=== PATIENT | female | born 1990 | race Caucasian/White ===

== ENCOUNTER → 2018-09-04 15:51 | Outpatient (CLI) | payer BC, MEDICAID, SELFPAY | PROVIDERS: PCP Family Medicine; Visit Provider Nurse Practitioner Family | DX: R00.2 Palpitations (principal) | CPT/HCPCS: 93005; 93225; 93226 ==

== ENCOUNTER → 2018-09-09 15:07 | Outpatient (CLI) | payer BC, MEDICAID, SELFPAY ==
--- NOTE | 2018-09-09 15:12 | CA_ITS ---
PROCEDURE: 2-D echo Doppler INDICATIONS FOR THE TEST: Chest pain COPD Heart Murmur+ Tobacco Smoking Palpitations+ Fatigue Syncope Edema Hypertension Diabetes Mellitus Rheumatic Fever SOB MCCARTHY Obesity Hyperlipidemia Family History HD Additional History PATIENT INFORMATION HEIGHT: 67 WEIGHT:169 GENDER: Female B/P:124/80 2-D/M-MODE INTERPRETATION: 2-D MEASUREMENTS OBSERVED VALUES IN CMS Right Ventricular Dimension (RVDd) 1.4 Interventricular Septum (Thickness)(IVsd) 0.9 Left Ventricular Internal Dimensions(LVIDd) 4.8 Left Ventricular Posterior Wall (Thickness)(LVPWd) 0.7 Aortic Root 2.7 Aortic Cusp Separation 1.8 Left Atrial Dimensions (LAD) 2.8 2D 1. Left atrium is normal size, left ventricle is normal size, there is no concentric left ventricular hypertrophy, visually estimated ejection fraction of 55% with no regional wall motion abnormality. 2. The right atrium and right ventricle are normal size and contractility. 3. The aortic, mitral and tricuspid valves are grossly normal. 4. The pulmonic valve is poorly visualized. 5. There is no significant pericardial effusion noted. DOPPLER INTERROGATION: Doppler interrogation of the aortic, mitral and tricuspid valvular presence of mild mitral and tricuspid regurgitation, tricuspid regurgitation jet velocity is inadequate for calculation of the right ventricular systolic pressure, diastolic parameters are within normal range. CONCLUSION: 1. Normal left ventricular size, preserved left ventricular systolic function, visually estimated ejection fraction of 55% with no regional wall motion abnormality, diastolic parameters are within normal range. 2. Mild mitral and tricuspid regurgitation 3. No significant pericardial effusion noted.
== END ==
PROVIDERS: PCP Family Medicine; Visit Provider Nurse Practitioner Family
DX: R00.2 Palpitations (principal)
CPT/HCPCS: 93306

== ENCOUNTER → 2019-02-13 15:12 | Outpatient (CLI) | payer BC, MEDICAID, SELFPAY ==
[2019-02-13 18:27] LABS: HCG,Quantitative 0 mIU/mL
== END ==
PROVIDERS: Visit Provider Obstetrics & Gynecology
DX: Z32.00 Encounter for pregnancy test, result unknown (principal)
CPT/HCPCS: 36415; 84702

== ENCOUNTER → 2020-07-15 12:07 | Outpatient (CLI) | payer BC, SELFPAY ==
[2020-07-16 14:14] LABS: Covid-19 Nasal PCR Sendout Lex NOT DETECTED
== END ==
PROVIDERS: PCP Family Medicine; Visit Provider Family Medicine
DX: Z03.818 Encounter for observation for suspected exposure to other biological agents ruled out (principal)
CPT/HCPCS: U0004

== ENCOUNTER 2021-06-07 11:17 | Emergency (ER) | payer BC, SELFPAY ==
[2021-06-07 12:44] VITALS: BP 125/71; PULSE 75; RESP 19; TEMP 36.9; O2SAT 99; BMI 30.3
[2021-06-07 12:48] VITALS: BP 125/71; PULSE 75; RESP 18; TEMP 36.9
--- NOTE | 2021-06-07 13:20 | HMH.EDUTC ---
[facility] [place] Clinical Impression: Viral syndrome Disposition: Home, Self-Care Condition on Discharge: Good Instructions: DI for Viral Syndrome, DI for COVID-19 (Suspected or Confirmed ), Preventing the Spread of Coronavirus Discharge Instructions Additional Instructions: Drink plenty of fluids. Take tylenol for pain or fever. Return if you begin to have difficulty breathing. Follow up with your regular doctor. GO TO THE ER FOR ANY WORSENING SYMPTOMS Quarantine until you know the results of your covid-19 test. If it is positive, the health department should call you and give you further instructions about your length of Quarantine and other things. Notify your school or workplace of your results and follow their instructions regarding return to work/school. Prescriptions: Ondansetron [Zofran 4mg ODT] 4 mg PO DAILYP PRN #12 tab PRN Reason: Nausea Transmission Status: Received by [facility] Referrals: Markel Hays MD [Primary Care Provider] - Forms: Work/School Release Time of Disposition: 13:21 Medical Decision Making - Medical Records Medical records reviewed: No: I reviewed the patient's medical records. - Mason Inquiry Pt receiving controlled substance: No Vital Signs: 06/07/21 12:44 06/07/21 12:48 Temperature 98.5 F 98.5 F Temperature Source Oral Pulse Rate 75 Pulse Rate [Left] 75 Respiratory Rate 19 18 Blood Pressure 125/71 Blood Pressure [Right Arm] 125/71 Blood Pressure Mean [Right Arm] 89 02 Sat by Pulse Oximetry 99 [facility] [place] HPI - General Stated complaint: covid test Time Seen by Provider: 06/07/21 12:45 Mode of Arrival: Ambulatory Source of Information: Patient Limitations: No Limitations Description of Symptoms (Recalled from Triage Doc. by RN): pt c/o congestion, cough, runny nose, and fatigue. HEENT Symptoms (Recalled from RN notes): Yes (MILLS and nasal congestion/drainage) Resp Symptoms (Recalled from RN notes): Yes (cough) Skin Symptoms (Recalled from RN notes): No MS Symptoms (Recalled from RN notes): No Functional Status (Recalled from RN notes): fatigue - History of Present Illness Provider Complaint: She c/o fatigue and feeling bad for the past 3 days. - Related Data Home Medications Medication Instructions Recorded Confirmed duloxetine 30 mg capsule,delayed cap PO 05/11/20 04/11/21 release multivitamin 1 tab PO DAILY 04/11/21 04/11/21 Previous Rx's Medication Instructions Recorded norgestimate 0.25 mg-ethinyl 1 tab PO DAILY #84 tab 05/13/21 estradiol 35 mcg tablet Ondansetron [Zofran 4mg ODT] 4 mg PO DAILYP PRN #12 tab 06/07/21 Allergies Allergy/AdvReac Type Severity Reaction Status Date / Time cefaclor [From Ceclor] Allergy Unknown Rash Verified 04/11/21 15:07 diphenhydramine Allergy Rash Verified 04/11/21 15:07 [From Benadryl] - Worker's Comp Is this a Worker's Comp case?: No [facility] History - Hepatitis A Screen Drug use history?: No High risk sexual behaviors?: No History of sexually transmitted infection?: No Currently employed?: No Childcare worker?: No Do you have indoor plumbing?: Yes Do you have electricity?: Yes Attestation statement:: This patient has been screened for Hepatitis A risk factors. I have reviewed the patient's past medical history: Yes Medical History: Reports:: Depression, Palpitations Other Medical History: Reports: Other Comment: Shingles (2017), Right Bundle Branch Block, heart Murmur Other Surgeries: Yes: No Previous Surgery Amputation: No Fractures: No - Social History Smoking Status: Never smoker Alcohol Intake: never Substance Use Type: denies use Occupational Status: employed Housing: house Household Members: significant other, children - Psychiatric History Pschychiatric History:: Reports:: Depression Family Hx:: Diabetes ROS Obtained: Yes All systems reviewed & no additional complaints - Constitutional Constitutional: Re
== END 2021-06-07 13:30 | disposition home or self-care (01) ==
PROVIDERS: Emergency Provider Nurse Practitioner Family; PCP Family Medicine
DX: Z20.822 Contact with and (suspected) exposure to COVID-19 (principal)
CPT/HCPCS: 99202; G0463; U0003

== ENCOUNTER → 2021-10-05 08:27 | Outpatient (CLI) | payer BC, SELFPAY | PROVIDERS: PCP Family Medicine; Visit Provider Nurse Practitioner | DX: Z20.822 Contact with and (suspected) exposure to COVID-19 (principal) | CPT/HCPCS: C9803; U0003; U0005 ==

== ENCOUNTER → 2021-10-12 08:19 | Outpatient (CLI) | payer BC, SELFPAY | PROVIDERS: Visit Provider Nurse Practitioner | DX: U07.1 COVID-19 (principal) | CPT/HCPCS: C9803; U0003; U0005 ==

== ENCOUNTER → 2021-10-12 09:29 | Outpatient (CLI) | payer BC, SELFPAY ==
[2021-10-12 10:39] LABS: Basophils % 0.4 % (0.1-2.0); Eosinophils # 0.1 K/mm3 (0.0-0.4); Eosinophils % 1.7 % (0.1-12.0); Hematocrit 44.5 % (37.0-47.0); Lymphocytes # 0.6 K/mm3 (0.7-4.5); Lymphocytes % 9.9 % (10-50); Mean Corpuscular HGB Conc 31.5 g/dL (31.8-35.4); Mean Corpuscular Hemoglobin 29.9 pg (27.0-31.2); Mean Corpuscular Volume 95.1 fl (81-99); Mean Platelet Volume 8.4 fl (7.4-10.4); Monocytes # 0.3 K/mm3 (0.1-1.0); Monocytes % 3.9 % (1.7-9.3); Neutrophils # 5.3 K/mm3 (1.8-7.8); Neutrophils % 84.2 % (37.0-80.0); Platelet Count 271 K/mm3 (142-424); Red Blood Count 4.67 M/mm3 (4.20-5.40); White Blood Count 6.3 K/mm3 (4.8-10.8)
== END ==
PROVIDERS: PCP Family Medicine; Visit Provider Physician Assistant
DX: Z20.822 Contact with and (suspected) exposure to COVID-19 (principal)
CPT/HCPCS: 36415; 85025; 87275; 87276

== ENCOUNTER 2022-02-08 09:02 | Emergency (ER) | payer BC, SELFPAY ==
--- NOTE | 2022-02-08 09:29 | HMH.EDUTC ---
[facility] [place] Impression: Viral syndrome Pharyngitis Qualifiers: Pharyngitis/tonsillitis etiology: unspecified etiology Qualified Code(s): J02.9 - Acute pharyngitis, unspecified Disposition: Home, Self-Care Condition on Discharge: Good Instructions: Strep Throat, DI for Strep Throat Additional Instructions: Drink plenty of fluids. Take tylenol or ibuprofen for pain or fever. Take the medications as directed. Follow up with your regular doctor. GO TO THE ER FOR ANY WORSENING SYMPTOMS Prescriptions: Brompheniramine/Pseudoephed/Dm [Bromfed Dm Cough Syrup] 5 ml PO Q6HP PRN #240 ml PRN Reason: Cough Transmission Status: Received by [facility] Amoxicillin [Amoxicillin 500mg Tab] 500 mg PO TID 10 Days #30 tab [facility]: [facility] methylPREDNISolone [Medrol] 4 mg PO DIRECTED 6 Days #21 packet Transmission Status: Received by [facility] Referrals: Markel Hays MD [Primary Care Provider] - Forms: Work/School Release Time of Disposition: 10:17 Medical Decision Making - Medical Records Medical records reviewed: No: I reviewed the patient's medical records. - Mason Inquiry Pt receiving controlled substance: No Vital Signs: 02/08/22 09:34 02/08/22 10:21 Temperature 100.0 F H 100.0 F H Temperature Source Oral Pulse Rate 95 H Pulse Rate [Radial] 117 H Respiratory Rate 20 20 Blood Pressure 145/80 H Blood Pressure [Right Arm] 157/100 H Blood Pressure Mean [Right Arm] 119 02 Sat by Pulse Oximetry 97 - Lab Data Lab results reviewed: Yes: I reviewed the patient's lab results. Lab Results 02/08/22 09:40: Group A Strep Rapid Negative 02/08/22 09:40: Influenza Type A Ag Negative, Influenza Type B Ag Negative 02/08/22 10:25: Chlamy pneumoniae PCR Not detected, Adenovirus (PCR) Not detected, B. pertussis DNA (PCR) Not detected, Coronavirus OC43 (PCR) Not detected, Coronavirus HKU1 (PCR) Not detected, Coronavirus 229E (PCR) Not detected, SARS-CoV-2 (PCR) Not detected, Coronavirus NL63 (PCR) Not detected, Human Metapneumovir PCR Not detected, Influenza A (H1) PCR Not detected, Influ A (H1N1/09) PCR Not detected, Influenza A (H3) PCR Not detected, Influenza Type A (PCR) Not detected, Influenza Type B (PCR) Not detected, M. pneumoniae (PCR) Not detected, Parainfluenza 1 (PCR) Not detected, Parainfluenza 2 (PCR) Not detected, Parainfluenza 3 (PCR) Not detected, Parainfluenza 4 (PCR) Not detected, RSV (PCR) Not detected, Entero/Rhino (PCR) Not detected Orders (Tests/Meds): ORDERS Category Date Time Status Strep Screen Confirmation Stat Micro 02/08/22 09:40 [place] [facility] [place] - General Stated complaint: Sore throat; body aches Time Seen by Provider: 02/08/22 09:29 - History of Present Illness Provider Complaint: She c/o sore throat and feeling bad for the past 2 days. - Related Data Home Medications Medication Instructions Recorded Confirmed multivitamin 1 tab PO DAILY 04/11/21 02/01/22 celecoxib 50 mg capsule 50 mg PO BID 02/01/22 02/01/22 phentermine 37.5 mg tablet 37.5 mg PO DAILY 02/01/22 02/01/22 Previous Rx's Medication Instructions Recorded norgestimate 0.25 mg-ethinyl 1 tab PO DAILY #84 tab 05/13/21 estradiol 35 mcg tablet Amoxicillin [Amoxicillin 500mg Tab] 500 mg PO TID 10 Days #30 tab 02/08/22 Brompheniramine/Pseudoephed/Dm 5 ml PO Q6HP PRN #240 ml 02/08/22 [Bromfed Dm Cough Syrup] methylPREDNISolone [Medrol] 4 mg PO DIRECTED 6 Days #21 02/08/22 packet Allergies Allergy/AdvReac Type Severity Reaction Status Date / Time cefaclor [From Ceclor] Allergy Unknown Rash Verified 02/08/22 09:36 diphenhydramine Allergy Rash Verified 02/08/22 09:36 [From Benadryl] [facility] History - Hepatitis A Screen Attestation statement:: This patient has been screened for Hepatitis A risk factors. I have reviewed the patient's past medical history: Yes Medical History: Report
[2022-02-08 09:34] VITALS: BP 157/100; PULSE 117; RESP 20; TEMP 37.8; O2SAT 97; BMI 32.3
[2022-02-08 09:42] LABS: UTC Influenza A Antigen Negative (Negative); UTC Influenza B Antigen Negative (Negative)
[2022-02-08 09:59] LABS: Strep Scrn Group A (Rapid) Negative (Negative)
[2022-02-08 10:21] VITALS: BP 145/80; PULSE 95; RESP 20; TEMP 37.8
[2022-02-08 10:31] LABS: Adenovirus,PCR Not Detected (NotDetected); Bordetella Pertussis Not Detected (NotDetected); Chlamydophila Pneumoniae, PCR Not Detected (NotDetected); Coronavirus 19, PCR Not Detected (NotDetected); Coronavirus 229E Not Detected (NotDetected); Coronavirus NL63 Not Detected (NotDetected); Coronavirus OC43 Not Detected (NotDetected); Coronovirus HKU1,PCR Not Detected (NotDetected); Human Metapneumovirus Not Detected (NotDetected); Influenza A, PCR Not Detected (NotDetected); Influenza AH1, 2009 Not Detected (NotDetected); Influenza AH1, PCR Not Detected (NotDetected); Influenza AH3,PCR Not Detected (NotDetected); Influenza B, PCR Not Detected (NotDetected); Mycoplasma Pneumoniae, PCR Not Detected (NotDetected); Parainfluenza 1, PCR Not Detected (NotDetected); Parainfluenza 2, PCR Not Detected (NotDetected); Parainfluenza 3, PCR Not Detected (NotDetected); Parainfluenza 4, PCR Not Detected (NotDetected); Respiratory Syncytial Virus Not Detected (NotDetected); Rhinovirus/Enterovirus Not Detected (NotDetected)
== END 2022-02-08 10:30 | disposition home or self-care (01) ==
PROVIDERS: Emergency Provider Nurse Practitioner Family; PCP Family Medicine
DX: J02.9 Acute pharyngitis, unspecified (principal); B34.9 Viral infection, unspecified; R00.2 Palpitations
CPT/HCPCS: 87430; 87581; 87632; 87798; 87804; 99213; C9803; G0463; U0003; U0005

== ENCOUNTER 2022-04-27 08:34 | Emergency (ER) | payer BC, SELFPAY ==
[2022-04-27 08:35] VITALS: BP 127/76; PULSE 76; RESP 19; O2SAT 98; BMI 32.7
--- NOTE | 2022-04-27 09:02 | HMH.EDUTC ---
[facility] [place] Disposition Clinical Impression: Encounter for laboratory testing for COVID-19 virus Disposition: Home, Self-Care Condition on Discharge: Good Instructions: DI for COVID-19 (Suspected or Confirmed ), Preventing the Spread of Coronavirus Discharge Instructions Additional Instructions: *Monitor Temp, Over the counter Motrin or Tylenol as directed/as needed Tylenol every 4 hours and Motrin every 6 hours (as long as your family doctor has told you that you can take it) for fever or pain. and straight to ER if unable to lower temp less than 101.0 after medication given Follow up IMMEDIATELY for new or worsening symptoms or no Noticeable improvement over the next 48-72 hours. 911 for difficulty breathing or swallowing You were tested for today for COVID19 your test result should be back in the next 24-48 hours, you may check your results on the [facility] My Health portal Make sure to take your Vitamins Vit. C Vit D and Zinc if you can take them Referrals: Markel Hays MD [Primary Care Provider] - As needed Forms: Work/School Release Time of Disposition: 09:13 Medical Decision Making - Mason Inquiry Pt receiving controlled substance: No Mason was queried for this patient: No Vital Signs: 04/27/22 08:35 Pulse Rate [Radial] 76 Respiratory Rate 19 Blood Pressure [Right Arm] 127/76 Blood Pressure Mean [Right Arm] 93 Blood Pressure Source [Right Arm] Automatic Cuff Blood Pressure Position [Right Arm] Sitting 02 Sat by Pulse Oximetry 98 Oxygen Delivery Method Room Air Orders (Tests/Meds): ORDERS Category Date Time Status Covid-19 Nasal PCR ([facility]) Routine Lab 04/27/22 08:49 Ordered [facility] [place] HPI - General Stated complaint: covid test Time Seen by Provider: 04/27/22 09:02 Mode of Arrival: Ambulatory Source of Information: Patient Limitations: No Limitations Description of Symptoms (Recalled from Triage Doc. by RN): HEADACHE, DIARRHEA, ABDOMINAL CRAMPING X 2 DAYS HEENT Symptoms (Recalled from RN notes): No Resp Symptoms (Recalled from RN notes): No Skin Symptoms (Recalled from RN notes): No MS Symptoms (Recalled from RN notes): No Functional Status (Recalled from RN notes): N/A - History of Present Illness Provider Complaint: Patient state that she has been having headache, cramping and diarrhea for the last couple of days but she has been on her period so she sometimes has these symptoms with her monthy States that she did have a faint line on her COVID test so they wanted her to come in and get a PCR COVID test - Related Data Home Medications Medication Instructions Recorded Confirmed multivitamin 1 tab PO DAILY 04/11/21 02/01/22 celecoxib 50 mg capsule 50 mg PO BID 02/01/22 02/01/22 phentermine 37.5 mg tablet 37.5 mg PO DAILY 02/01/22 02/01/22 Previous Rx's Medication Instructions Recorded norgestimate 0.25 mg-ethinyl 1 tab PO DAILY #84 tab 05/13/21 estradiol 35 mcg tablet Amoxicillin [Amoxicillin 500mg Tab] 500 mg PO TID 10 Days #30 tab 02/08/22 Brompheniramine/Pseudoephed/Dm 5 ml PO Q6HP PRN #240 ml 02/08/22 [Bromfed Dm Cough Syrup] methylPREDNISolone [Medrol] 4 mg PO DIRECTED 6 Days #21 02/08/22 packet metronidazole 500 mg tablet 500 mg PO BID 7 Days #14 tab 02/14/22 Allergies Allergy/AdvReac Type Severity Reaction Status Date / Time cefaclor [From Ceclor] Allergy Unknown Rash Verified 02/08/22 09:36 diphenhydramine Allergy Rash Verified 02/08/22 09:36 [From Benadryl] - Worker's Comp Is this a Worker's Comp case?: No [facility] History - Hepatitis A Screen Attestation statement:: This patient has been screened for Hepatitis A risk factors. I have reviewed the patient's past medical history: Yes Medical History: Reports:: Depression, Palpitations Other Medical History: Reports: Other Comment: Mehdi (2017), Right Bundle Branch Block, heart Murmur Other Surgeries: Yes: No Previous Surgery Amputation: No Fractures: No - Social History Smoking Statu
[2022-04-27 09:27] VITALS: BP 127/76; PULSE 76; RESP 19; TEMP 36.8
== END 2022-04-27 09:27 | disposition home or self-care (01) ==
PROVIDERS: Emergency Provider Nurse Practitioner; PCP Family Medicine
DX: Z20.822 Contact with and (suspected) exposure to COVID-19 (principal); R51.9 Headache, unspecified; R19.7 Diarrhea, unspecified; R10.9 Unspecified abdominal pain
CPT/HCPCS: 99212; C9803; G0463; U0003; U0005

== ENCOUNTER → 2022-04-28 12:20 | Outpatient (CLI) | payer BC, SELFPAY ==
--- NOTE | 2022-04-28 12:23 | XR_ITS ---
FINAL REPORT CLINICAL HISTORY: PLANTAR FASCITIS FINDINGS: LEFT FOOT Three views of the left foot demonstrate no acute fracture or dislocation. The visualized joint spaces are normally aligned. The soft tissues are unremarkable. IMPRESSION: No acute bony abnormality. Reviewed, Interpreted and Dictated by Doreen Chappell MD Transcribed by Jessa Williamson Authenticated and [facility]
--- NOTE | 2022-04-28 12:23 | XR_ITS ---
FINAL REPORT CLINICAL HISTORY: PLANTAR FASCITIS FINDINGS: RIGHT FOOT Three views of the right foot demonstrate no acute fracture or dislocation. The visualized joint spaces are normally aligned. The soft tissues are unremarkable. IMPRESSION: No acute bony abnormality. Reviewed, Interpreted and Dictated by Doreen Chappell MD Transcribed by Jessa Williamson Authenticated and [facility]
== END ==
LOC: RAD 12:21
PROVIDERS: PCP Family Medicine; Visit Provider Family Medicine
DX: M79.672 Pain in left foot (principal); M79.671 Pain in right foot; M72.2 Plantar fascial fibromatosis
CPT/HCPCS: 73630

== ENCOUNTER → 2023-06-07 09:20 | Outpatient (CLI) | payer BC, SELFPAY ==
[2023-06-07 10:28] LABS: Free Thyroxine Index 2.9 ug/dL (5.93-13.13); T4 (Thyroxine) 13.9 ug/dl (5.53-11.0); Triiodothryronine (T3) Uptake 21 % (23.5-40.5)
[2023-06-07 10:42] LABS: Thyroid Stimulating Hormone 1.67 uIU/mL (0.465-4.68)
== END ==
PROVIDERS: PCP Family Medicine; Visit Provider Nurse Practitioner Obstetrics & Gynecology
DX: R53.83 Other fatigue (principal); Z79.899 Other long term (current) drug therapy
CPT/HCPCS: 36415; 84436; 84443; 84479

== ENCOUNTER 2024-01-08 06:46 | Emergency (ER) | payer BC, SELFPAY ==
[2024-01-08 06:48] VITALS: BP 134/86; PULSE 87; RESP 17; TEMP 36.8; O2SAT 98; BMI 34.9
--- NOTE | 2024-01-08 06:55 | PC.NURSE ---
Ice pack applied to left ankle
--- NOTE | 2024-01-08 06:59 | XR_ITS ---
FINAL REPORT CLINICAL HISTORY: fall, acute pain FINDINGS: Left ankle Three views were obtained. There is no acute fracture or dislocation. The joint spaces appear normal. No soft tissue abnormality is identified. IMPRESSION: No acute process. Reviewed, Interpreted and Dictated by Vishal Juarez III, MD Transcribed by Aracelis Alarcon Authenticated and [facility]
[2024-01-08 07:00] VITALS: BP 123/84; PULSE 89; RESP 20; O2SAT 98
--- NOTE | 2024-01-08 07:05 | XR_ITS ---
FINAL REPORT CLINICAL HISTORY: 5th met tenderness after inversion COMPARISON: 04/28/2022 FINDINGS: Left foot Three views were obtained. There is no acute fracture or dislocation. The joint spaces appear normal. No soft tissue abnormality is identified. IMPRESSION: No acute process. Reviewed, Interpreted and Dictated by Vishal Juarez III, MD Transcribed by Aracelis Alarcon Authenticated and [facility]
--- NOTE | 2024-01-08 07:08 | ED_ITS ---
Discharge Plan Disposition Patient Disposition: Home, Self-Care Chief Complaint: Extremity Injury, Lower Prescriptions Prescriptions: No Action levocetirizine [Xyzal] 5 mg tablet 5 mg PO DAILY montelukast [Singulair] 10 mg tablet 10 mg PO DAILY metoprolol succinate 25 mg tablet extended release 24 hr 25 mg PO metronidazole 500 mg tablet 500 mg PO BID 7 Days Qty: 14 0RF norgestimate-ethinyl estradiol [Sprintec (28)] 0.25-35 mg-mcg tablet 1 tab PO DAILY Qty: 28 11RF Referrals Follow up/Referrals: Markel Hays MD [Primary Care Provider] - See instructions Activity Restrictions/Add. Instructions Additional Instructions/Restrictions: Call your family doctor to establish care for this visit to the emergency department and schedule follow-up within 48 hours to ensure improvement. If you have any worsening of your condition or any other concerning signs or symptoms, return to the emergency department or your primary care doctor for further evaluation. Clinical Impressions Clinical Impression: Left ankle sprain Discharge ED Provider: Alex Ahn General Adult HPI General Chief complaint: Extremity Injury, Lower Stated complaint: left ankle pain, can't put weight on it Time Seen by Provider: 01/08/24 07:01 Mode of Arrival: Wheelchair Source of Information: Patient Limitations: No Limitations Description of Symptoms (Recalled from ER Triage Doc. by RN): Patient reports walking out of her home and down steps and twisted her left ankle causing her to fall. She reports that she heard a pop and has been unable to bear weight on the left ankle since. History of Present Illness HPI narrative: 33-year-old female no relevant history presenting with left ankle pain. Patient states that she was walking out of her garage today, just before arrival, when she stepped incorrectly, inverted her ankle. Had immediate pain and felt a popping sensation lateral aspect of her left foot and ankle. Cannot bear weight without significant pain, so has not bared weight since. Has not taken anything for the pain. No neurologic deficits. Please note that above description of symptoms, in this electronic medical record under categorization of recalled from ER triage doctor by RN are reflective of an initial nursing assessment, however, is not reflective of my full history and physical exam that was personally taken and clarified. Consequentially, this preceding description of symptoms, which may include the patient's categorized chief complaint in the EMR, do not reflect my personal clinical impression, and the ultimate description of history of present illness and patient stated complaints should be deferred to this section of the note. Unless stated otherwise or congruent with this section of the note, additional signs, symptoms, or incongruence should be interpreted as inaccurate with my clinical impression. Related Data Home Medications Medication Instructions Recorded Confirmed levocetirizine 5 mg tablet (Xyzal) 5 mg PO DAILY 05/22/22 06/07/23 montelukast 10 mg tablet 10 mg PO DAILY 05/22/22 06/07/23 (Singulair) metoprolol succinate 25 mg 25 mg PO 06/07/23 06/07/23 tablet,extended release 24 hr Previous Rx's Medication Instructions Recorded norgestimate 0.25 mg-ethinyl 1 tab PO DAILY #28 tabs 05/21/23 estradiol 35 mcg tablet (Sprintec (28)) metronidazole 500 mg tablet 500 mg PO BID 7 days #14 tabs 06/13/23 Allergies Allergy/AdvReac Type Severity Reaction Status Date / Time cefaclor [From Ceclor] Allergy Unknown Rash Verified 06/07/23 08:36 [facility] Disclaimer: The information contained in this section may have been updated after the patient was seen, as this information can be updated by other users. Medical History (Updated 01/08/24 @ 07:59 by Alex Ahn MD) Palpitations Depression Surgical History (Updated 06/07/23 @ 08:39 by NICKOLAS Espinosa) No history of previous surgery Family History (Updated 06/07/23 @ 08:39 by NICKOLAS Espinosa) Other Cancer Diabetes Hypertension Social History Smoking Status: Never smoker alcohol intake: never substance use type: denies use current occupational status: employed Travel in the last 8 weeks: None household members: significant other and children housing: house ROS Obtained: Yes All systems reviewed & no additional complaints except as documented Physical Exam General General appearance: alert and in no apparent distress Head Head exam: atraumatic and normocephalic Eye Eye exam: Present normal appearance, PERRL and EOMI ENT ENT exam: Present mucous membranes moist Neck Neck exam: Present normal inspection, full ROM and trachea midline Respiratory Respiratory exam: Absent respiratory distress, wheezes, stridor, accessory muscle use or prolonged expiratory phase Cardiovascular Cardiovascular exam: Present normal rhythm Abdominal Exam Abdominal exam: Present soft; Absent distention, tenderness, guarding, rebound or rigidity Extremities Exam Extremities exam: Present other (Very mild swelling. Significant tenderness p osterior and anterior aspect of the lateral malleolus. Also tenderness base of fifth metatarsal. Neurovascularly intact. Range of motion intact. Bearing weight deferred); Absent edema Neurological Exam Neurological exam: Present alert, oriented X3, CN II-XII intact and normal gait; Absent motor sensory deficit Skin Skin exam: Present warm and dry; Absent diaphoresis or erythema Medical Decision Making Medical Records Medical records reviewed: Yes I reviewed the patient's medical records. Mason Inquiry Pt receiving controlled substance: No Mason was queried for this patient: No Vital Signs: 01/08/24 06:48 01/08/24 07:00 Temperature 98.3 F Temperature Source Oral Pulse Rate 89 Pulse Rate [Right Radial] 87 Respiratory Rate 17 20 Blood Pressure 123/84 Blood Pressure [Right Arm] 134/86 Blood Pressure Mean 94 Blood Pressure Mean [Right Arm] 102 Blood Pressure Source [Right Arm] Automatic Cuff Blood Pressure Position [Right Arm] Sitting 02 Sat by Pulse Oximetry 98 98 Oxygen Delivery Method Room Air Room Air Orders (Tests/Meds): ED MEDICATIONS Discontinued Medications Generic Name Dose Route Start Last Admin Trade Name Freq PRN Reason Stop Dose Admin Acetaminophen 1,000 mg 01/08/24 07:10 01/08/24 07:37 Acetaminophen 500mg Tab PO 01/08/24 07:11 1,000 mg ONCE ONE Administration Ibuprofen 600 mg 01/08/24 07:10 01/08/24 07:37 Ibuprofen 600 Mg Tablet PO 01/08/24 07:11 600 mg ONCE ONE Administration ORDERS Category Date Time Status Ankle XR - Left minimum 3 Views [XR ankle LT min 3V] Exams 01/08/24 06:59 Taken Stat Foot XR left minimum 3 views [XR foot LT min 3V] Stat Exams 01/08/24 07:05 Taken Medical Decision Narrative: 33-year-old female no relevant history presenting with left ankle pain. Patient states that she was walking out of her garage today, just before arrival, when she stepped incorrectly, inverted her ankle. Had immediate pain and felt a popping sensation lateral aspect of her left foot and ankle. Cannot bear weight without significant pain, so has not bared weight since. Has not taken anything for the pain. No neurologic deficits. History obtained with patient. On physical exam, patient stable, in no acute distress at rest. Tenderness about lateral malleolus as well as base of fifth metatarsal, primarily malleolus. Neurovascularly intact with range of motion intact. Weightbearing was deferred. Patient has no tenderness elsewhere on the left lower extremity. Differential includes fracture, sprain, strain, avulsion fracture, dislocation, among others. Patient given Tylenol Motrin. Independent interpretation of x-rays demonstrated no fracture or bony abnormality of the left foot or ankle. Because patient at baseline without signs or symptoms of clinical decompensation, deemed appropriate for discharge. Results were relayed to patient who voiced understanding and were agreeable to outpatient management and follow up. I discussed my clinical impression with patient and answered all questions. At this time, the evidence for any other entities in the differential is ins ufficient to warrant any further testing or ED observation. This was explained as well. Advisory was given that persistent or worsening symptoms require further evaluation. I confirmed the understanding of this discussion. Critical Care Critical Care Time Critical Care Time: No
[2024-01-08] MEDS: IBUPROFEN 600 MG TABLET PO (07:37)
[2024-01-08] MEDS: ACETAMINOPHEN 500MG TAB 1000 MG PO (07:37)
--- NOTE | 2024-01-08 07:44 | PC.NURSE ---
Dr. Ahn at [facility] to update pt on POC
[2024-01-08 08:07] VITALS: BP 123/84; PULSE 89; RESP 20; TEMP 36.8; O2SAT 98
== END 2024-01-08 08:08 | disposition home or self-care (01) ==
PROVIDERS: Emergency Provider Emergency Medicine; PCP Family Medicine
DX: S93.402A Sprain of unspecified ligament of left ankle, initial encounter (principal); X50.1XXA Overexertion from prolonged static or awkward postures, initial encounter
CPT/HCPCS: 73610; 73630; 99283

== ENCOUNTER 2024-07-23 11:28 | Outpatient (CLI) | payer BC, SELFPAY ==
--- OUTSIDE RECORDS SUMMARY | 2024-07-23 11:31 | XMS_ITS ---
Author Organization [facility] Address [address] [place] [id number] Care Team Providers Care Dividing Machine Operator Name Role Phone Effie Hays Primary Care Provider [phone] EFFIE HYAS Unavailable Unavailable ALLERGIES Allergen (clinical drug ingredient) Drug/Non Drug Allergy documented on EMR Reaction Allergy Type Onset Date Status cefaclor Cefaclor Unknown Drug Allergy Active RESULTS Component Value Reference Range Notes Covid test (in house) (Not y et reviewed by provider) Interpretation: Performing Lab: Notes/Report: Result: Neg REASON FOR VISIT back pain and lungs hurt MEDICATIONS Medication SIG (Take, Route, Frequency, Duration) Notes Start Date End Date Status QUEtiapine Fumarate 25 MG TAKE 1 TO 2 TA BLETS BY MOUTH ONCE DAILY AT BEDTIME for Active Xyzal Allergy 24HR 5 MG 1 tab(s) orally once a day (in the evening) for 90 days Active Montelukast Sodium 10 MG take 1 tablet b y mouth daily. for 90 days Active Ondansetron HCl 4 MG 1 tablet Orally thr ee times a day as needed 07/23/2024 Active Benzonatate 200 MG 1 capsule as needed Orally Three times a day 07/23/2024 Active Promethazine-DM 6.25-15 MG/5ML 5 ml as needed Orally every 6 hrs 07/23/2024 Active Sprintec 28 0.25-35 MG-MCG 1 tab(s) oral ly once a day Active Metoprolol Succinate ER 25 MG 1 tab(s) orally once a day for 90 days Active Zithromax Z-Nilo 250 MG as directed Orall y once daily for 5 day(s) 07/23/2024 Active VITAL SIGNS Weight 200.6 lbs 07/23/2024 Blood pressure systolic 116 mm Hg 07/23/20 Blood pressure diastolic 74 mm Hg 024 Heart Rate 101 /min 07/23/2024 Height 63.50 in 07/23/2024 BMI 34.97 kg/m2 07/23/2024 Encounters Encounter Location Date Provider Diagnosis [facility] [address] [facility] [address] [facility] [address] [place] [id number] 07/23/2024 Effie Hays Acute cough R 05.1 ASSESSMENTS Encounter Date Diagnosis Assessment Notes Treatment Notes Treatment Clinical Notes 07/23/2024 Acute cough (ICD-10 - R05.1) PLAN OF TREATMENT Medication Medication Name Sig Start Date Stop Date Notes Ondansetron HCl 4 MG 1 tablet Orally thr ee times a day as needed 07/23/2024 Benzonatate 200 MG 1 capsule as needed Orally Three times a day 07/23/2024 Promethazine-DM 6.25-15 MG/5ML 5 ml as n eeded Orally every 6 hrs 07/23/2024 Zithromax Z-Nilo 250 MG as directed Orall y once daily for 5 day(s) 07/23/2024 Pending Test Test Name Order Date CXR 07/23/2024 Covid test (in house) 07/23/2024 Next Appt Details Provider Name:Effie Allison ry, 07/23/2024 10:45:00 AM, [address] [facility] [address] [facility], [address], [place], [phone], History and Physical Notes * HPI (History of Present Illness) Category Sub-Category Detail Notes ENT/respiratory cough Pt complains of dry without any sputum production cough that started this morning. Pt states she started with bodyaches, elevated heart rate yesterday. Pt states that it hurts to take a deep breath and she has pleuritic chest pain . Pt had negative flu test done at work this morning
--- OUTSIDE RECORDS SUMMARY | 2024-07-23 11:31 | XMS_ITS ---
Author Organization [facility] Address [address] [facility] [address] [facility] [address] [place] [id number] Care Team Providers Care Medicine Assistant Name Role Phone Effie Hays Primary Care Provider [phone] EFFIE HAYS Unavailable Unavailable REASON FOR VISIT Refills MEDICATIONS Medication SIG (Take, Route, Fr equency, Duration) Notes Start Date End Date Status Wegovy 0.5 MG/0.5ML 0.5 ml Subcutaneous once weekly Active Encounters Encounter Location Date Provider Diagnosis [facility] [address] [facility] [address] [facility] [address] [place] [id number] 06/27/2024 Effie Hays PLAN OF TREATMENT Medication Medication Name Sig Start Date Stop Date Notes Wegovy 0.5 MG/0.5ML 0.5 ml Subcutaneous once weekly Next Appt Details Provider Name:Effie lindsey, 07/23/2024 10:45:00 AM, [address] [facility], [address], [place], [phone],
--- OUTSIDE RECORDS SUMMARY | 2024-07-23 11:31 | XMS_ITS ---
Author Organization [facility] Address [address] [facility] [address] [facility] [address] [place] [phone] Care Team Providers Care Certified Ophthalmic Assistant Name Role Phone Effie Hays Primary Care Provider EFFIE HAYS Unavailable Unavailable REASON FOR VISIT 6 weeks Encounters Encounter Location Date Provider Diagnosis [facility] [address] [facility] [address] [place] [id number] 07/01/2024 Effie Hays PLAN OF TREATMENT Next Appt Details Provider Name:Effie Allison ry, 07/23/2024 10:45:00 AM, [address], [address], [place], [phone],
--- OUTSIDE RECORDS SUMMARY | 2024-07-23 11:32 | XMS_ITS | Patient Health Record ---
Author Organization [facility] Address [address] [place] [phone] Care Team Providers Care Acquisition Professional Name Role Phone Effie Hays Primary Care Provider EFFIE HAYS Unavailable Unavailable Pam Gallo Unavailable [phone] Carolina Reno Unavailable [phone] ALLERGIES Allergen (clinical drug ingredient) Drug/Non Drug Allergy documented on EMR Reaction Allergy Type Onset Date Status cefaclor Cefaclor Unknown Drug Allergy Active RESULTS Component Value Reference Range Notes Covid test (in house) (Not y et reviewed by provider) Interpretation: Performing Lab: Notes/Report: Result: Neg P-Vitamin D 25-Hydroxy Reviewed date:04/24/2024 08:54:46 AM Interpretation:43.5 Performing Lab: Notes/Report: Test performed by [facility] [address] [place], [place] [address] [place] , [place] [address], [place] [address] Kalin Ortega MD, Make Up Operator Helper CLIA: [id number] Vitamin D 25-Hydroxy 43.5 30.0-100.0 ng/mL Interpretation of Vitamin D 25 OH: < 20 ng/mL - Deficiency 20 - 29 ng/mL - Insufficiency 30 - 100 ng/mL - Sufficiency > 100 ng/mL - Super-therapeutic- toxicity may occur above this level. Clinical correlation required. P-TSH reflex to FT4 Reviewed date:04/24/2024 08:54:46 AM Interpretation: Normal Performing Lab: Notes/Report: Test performed by [facility] [address] [place] [address] Nu [place], [place] [address] Kalin Ortega MD, Make Up Operator Helper CLIA: [id number] TSH reflex to FT4 1.60 0.43-5.25 mU/L P-Phosphorus Reviewed date:04/24/2024 08:54:46 AM Interpretation: Normal Performing Lab: Notes/Report: Test performed by [facility] [address] [place] [address] , [address], [place] [address] Kalin Ortega MD, Make Up Operator Helper CLIA: [id number] Phosphorus 2.5 2.5-4.5 mg/dL P-Magnesium Reviewed date:04/24/2024 08:54:46 AM Interpretation: Normal Performing Lab: Notes/Report: Test performed by [facility] [address] [place] [address] , [address], [place] [address] Kalin Ortega MD, Make Up Operator Helper CLIA: [id number] Magnesium 1.8 1.6-2.4 mg/dL P-Comprehensive Metabolic Pa zelalem (CMP) Reviewed date:04/24/2024 08:54:45 AM Interpretation: Normal Performing Lab: Notes/Report: Test performed by [facility] [address] [place] [address] , [address], [place] [address] Kalin Ortega MD, Make Up Operator Helper CLIA: [id number] Sodium 141 135-145 mmol/L Potassium 4.4 3.5-5.3 mmol/L Chloride 105 97-108 mmol/L CO2 24 22-32 mmol/L Glucose 98 65-99 mg/dL BUN 13 6-20 mg/dL Creatinine 0.78 0.50-1.00 mg/dL Calcium 9.8 8.6-10.4 mg/dL eGFR by Creatinine 104 >59 mL/min/1.73m2 Protein 6.9 6.0-8.3 g/dL Albumin 4.3 3.5-5.3 g/dL Alkaline Phosphatase 58 35-121 IU/L ALT (SGPT) 18 <5-47 IU/L AST (SGOT) 18 <5-40 IU/L Bilirubin, Total 0.2 <0.2-1.2 mg/dL A/G Ratio 1.7 1.1-2.5 mg/dL P-Vitamin B12 Reviewed date:04/24/2024 08:54:45 AM Interpretation:341 Performing Lab: Notes/Report: Test performed by [place] [place] [facility] , [address], [place] [address] Kalin Ortega MD, Make Up Operator Helper CLIA: [id number] Vitamin B12 [phone] pg/mL CBC Venipuncture (in house) Reviewed date:04/22/2024 12:07:07 PM Interpretation: Performing Lab: Notes/Report: wbc 5.5 3.5 - 10 lymph 24.4 15 - 50 mid 5.8 2 - 15 gran 69.8 35 - 80 rbc 5.00 3.5 - 5.5 hgb 14.9 11.5 - 16.5 hct 43.8 35 - 55 mcv 87.6 75 - 100 mch 29.8 25 - 35 mchc 34.0 31 - 38 platlet 259 100 - 400 Rapid Strep- Inhouse Reviewed date:09/03/2023 10:55:49 AM Interpretation: Performing Lab: Notes/Report: strep test neg REASON FOR REFERRAL No Information MEDICATIONS Medication SIG (Take, Route, Frequency, Duration) Notes Start Date End Date Status Ondansetron HCl 4 MG 1 tablet Orally thr ee times a day as needed 07/23/2024 Active Benzonatate 200 MG 1 capsule as needed Orally Three times a day 07/23/2024 Active QUEtiapine Fumarate 25 MG TAKE 1 TO 2 TA BLETS BY MOUTH ONCE DAILY AT BEDTIME for Active Promethazine-DM 6.25-15 MG/5ML 5 ml as needed Orally every 6 hrs 07/23/2024 Active Zithromax Z-Nilo 250 MG as directed Orall y once daily for 5 day(s) 07/23/2024 Active Xyzal Allergy 24HR 5 MG 1 tab(s) orally once a day (in the evening) for 90 days Active Sprintec 28 0.25-35 MG-MCG 1 tab(s) oral ly once a day Active Montelukast Sodium 10 MG take 1 tablet b y mouth daily. for 90 days Active Metoprolol Succinate ER 25 MG 1 tab(s) orally once a day for 90 days Active IMMUNIZATIONS Vaccine Route Administration Date Status Comme nts COVID 19 Pfizer Unknown 09/22/2020 Administered COVID 19 Pfizer Unknown 10/13/2020 Administered COVID 19 Pfizer Unknown 07/13/2021 Administered DT, 7 YEARS OR OLDER Unknown 04/05/2004 Administered Fluzone PF Quad (6-35 months) Unknown 06/12/2016 Administered Fluzone Quad (6months&older) IM Intramuscular 06/01/2017 Administered HEPB VACC PED/ADOL DOSE IM Unknown 07/05/1998 Administered HEPB VACC PED/ADOL DOSE IM Unknown 08/06/1998 Administered HEPB VACC PED/ADOL DOSE IM Unknown 01/05/1999 Administered ppd ID Intradermal 05/09/2016 Administered checked by WS Tetanus Tdap-Adacel (over 7yrs) Unknown 02/06/2011 Administered Tetanus Tdap-Adacel (over 7yrs) IM Intramuscular 11/24/2013 Administered Varivax Unknown 02/06/2011 Administered Varivax IM Intramuscular 04/07/2020 Administered xFluzone (6mos and older)-trivalent IM Intramuscular 07/30/2013 Administered SOCIAL HISTORY Sex Assigned At : Social History Observation Description Sex Assigned At Unknown PROBLEMS Problem Type ICD Code Onset Dates Problem Status W/U Status Risk SNOMED Code Notes Problem Abnormal Pap smear of cervix with low-grade squamous intraepithelial lesion (795.03) Active confirmed Cervicovagin al cytology: Low grade squamous intraepithelial lesion (274297971) Problem Vitamin D deficiency (E55.9) Active confirmed 85775102 Problem Depression with anxiety (F41.8) Active confirmed 121064933 Problem Primary insomnia (F51.01) Active confirmed 8002879 Problem Irregular menses (N92.6) Active confirmed 93332000 Problem Non morbid obesity (E66.9) Active confirmed 880414763 Problem Seasonal allergic rhinitis, unspecified trigger (J30.2) Active confirmed 961199800 Problem Non-seasonal allergic rhinitis, unspecified trigger (J30.89) Active confirmed 63213989 VITAL SIGNS Heart Rate 101 /min 07/23/2024 Blood pressure diastolic 74 mm Hg 07/23/2024 Height 63.50 in 07/23/2024 Blood pressure systolic 116 mm Hg 07/23/2024 Weight 200.6 lbs 07/23/2024 BMI 34.97 kg/m2 07/23/2024 Encounters Encounter Location Date Provider Diagnosis [facility] [address] [place], [place] [id number] 09/03/2023 Carolina Reno Strep throat J02.0 [facility] [address] [facility] [address] [place], [place] [id number] 04/22/2024 Effie [place] Non-seasonal allergi c rhinitis, unspecified trigger J30.89 ; Fatigue, unspecified type R53.83 ; Depression with anxiety F41.8 ; Non morbid obesity E66.9 and Vitamin D deficiency E55.9 [facility] [address] [facility] [address] [place], [place] [id number] 07/01/2024 Effie Shawnee [facility] [address] [facility] [address] [place], [place] [id number] 07/23/2024 Effie [place]nee Acute cough R05.1 [facility] [address] [facility] [address] [place], [place] [id number] 01/09/2024 Effie [place] Sprain of left ankle , unspecified ligament, initial encounter S93.402A [facility] [address] [facility] [address] [place], [place] [id number] 05/20/2024 Effie [place] Depression with anxiety F41.8 and Primary insomnia F51.01 [facility] [address] [facility] [address] [place], [place] [id number] 04/22/2024 Pam Gallo [facility] [address] [facility] [address] [place] [id number] 04/24/2024 Effie [place] [facility] [address] [place], [place] [id number] 06/06/2024 Effie Shawnee [facility] [address] [facility] [address] [place], [place] [id number] 06/27/2024 Effie [place]nee ASSESSMENTS Encounter Date Diagnosis Assessment Notes Treatment Notes Treatment Clinical Notes 09/03/2023 Strep throat (ICD-10 - J02.0) fluids, rest, supportive measures for fever/symptom relief, finish abx; gargle q2h prn; infectious precautions; change toothbrush in 3-4 days; good water intake with tylenol/motrin prn; brush teeth with water swish and spit x3 tid daugher has strep throat and they have been eating and drinking after one another; will Also Tx Mom 01/09/2024 Sprain of left ankle, unspecified ligament, initial encounter (ICD-10 - S93.402A) Rest, ice, compression and elevation. Patient will likely need to be off of work for several days 04/22/2024 Fatigue, unspecified type (ICD-10 - R53.83) 04/22/2024 Non-seasonal allergic rhinitis, unspecified trigger (ICD-10 - J30.89) 05/20/2024 Depression with anxiety (ICD-10 - F41.8) Patient would like to wait on starting Cymbalta today 05/20/2024 Primary insomnia (ICD-10 - F51.01) 07/23/2024 Acute cough (ICD-10 - R05.1) 04/22/2024 Depression with anxiety (ICD-10 - F41.8) Await test results before starting any medication 04/22/2024 Non morbid obesity (ICD-10 - E66.9) 04/22/2024 Vitamin D deficiency (ICD-10 - E55.9) PLAN OF TREATMENT Pending Test Test Name Order Date CXR 07/23/2024 Covid test (in house) 07/23/2024 Next Appt Details Provider Name:Effie Allison ry, 07/23/2024 10:45:00 AM, [address] [facility], [address], [place], [place], [phone], Insurance Providers Payer Name Payer Address Payer Phone Subscriber Number Group Number Insured Name Patient Relationship to Insured Coverage Start Date Coverage End Date [employer]ERARD [employer] [facility] [address] [place] [address] [id number] 3EFelicia Watson Self - patient is the insured MEDICAL (GENERAL) HISTORY Medical History History ICD Code Meningitis Allergic Rhinitis Cardiac Murmur Surgical History Surgery Date(Month/Year) Hospitalization History Reason Date(Month/Year) [facility] ER
--- NOTE | 2024-07-23 11:34 | XR_ITS ---
PROCEDURE INFORMATION: Exam: XR Chest Exam date and time: 07/23/2024 11:36 AM Age: 33 years old Clinical indication: Cough; Additional info: Acute cough TECHNIQUE: Imaging protocol: Radiologic exam of the chest. Views: 2 views. COMPARISON: CR XR CHEST 2V 07/23/2024 11:36 AM FINDINGS: Lungs: Unremarkable. No consolidation. Pleural spaces: Unremarkable. No pleural effusion. No pneumothorax. Heart/Mediastinum: Unremarkable. No cardiomegaly. Bones/joints: Unremarkable. IMPRESSION: No acute findings.
== END 2024-07-23 23:59 | disposition home or self-care (01) ==
LOC: RAD 11:29
PROVIDERS: PCP Family Medicine; Visit Provider Family Medicine
DX: R05.1 Acute cough (principal)
CPT/HCPCS: 71046

== ENCOUNTER 2025-07-28 08:00 | Outpatient (RCR) | payer BC, SELFPAY ==
--- NOTE | 2025-07-07 15:45 | HMH.PTOPEV ---
PT Evaluation Rehab PT Outpatient Evaluation Start: 07/07/25 14:45 Freq: Status: Active Protocol: Document 07/07/25 14:45 MODESTO (Rec: 07/07/25 15:45 MODESTO [id number]) E-signed By Yosvany Cano, PT Outpatient Therapy Subjective History Subjective History Pt is a 34 yof who is referred to [facility] outpatient PT with complaints of R hip pain. Pt reports that her symptoms began approximately 8 months ago. Pt reports that she sought care from a chiropractor who diagnosed her with IT band syndrome and trialed Ultrasound. Pt reports that this gave her no relief. Pt reports that she then started going to the gym and has been doing some exercises, which also have not helped. Pt reports that her R hip will often stiffen up when she sits and she has a lot of pain when she stands up. Pt reports that her pain will then typically lessen after moving around for a little bit. However, the patient reports that her pain will then worsen as she goes on throughout her day. 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 Chief Complaint Pain,Stiff Symptom Type Ache,Burning Symptoms Relieved By Nothing Symptoms Aggravated Standing,Walking,Lifting By Prior Functional None Limitations Current Functional Lifting,Housework,Standing,Squatting,Walking,Stairs Limitations Symptom Description Intermittent,Activity Dependent Level of pain today 1 (0-10) Pain scale - at its 0 best (0-10) Pain scale - at its 5 worst (0-10) Hip/Knee Eval Gait Observation General Gait Pattern No Deviations/Normal Observation Palpation Tenderness right Hip Palpation Tenderness Findings Hip Palpation TTP 3/4 to greater trochanter Overall Comment MMT Hip Flexion Strength 4 Good Grade Hip Abduction 3+ Fair+ Strength Grade Hip Adduction 3+ Fair+ Strength Grade Hip Extension 4- Good- Strength Grade Knee Extension 5 Normal Strength Grade Knee Flexion 5 Normal Strength Grade ROM Hip Flexion w/Knee 75 Flexed Active Range of Motion (degrees) Hip Flexion w/Knee 85 Flexed Passive Range of Motion (degrees) Special Tests Hip Bowstring (Cram) Negative Right Test Hip Jericho's Test Negative Right Hip Mariana's Test Negative Right Hip Jeanna Test Negative Right Hip Piriformis Test Negative Right Hip Scouring ( Positive Right Quadrant) Test Hip Trendelenburg Positive Right Test Lower Extremity Functional Index Activities Today, do you or would you have any difficulty at all with: a.Any of your usual A little bit of difficulty work, housework or school activities b. Your usual A little bit of difficulty hobbies, recreational or sporting activities c. Getting into or No difficulty out of the bath d. Walking between No difficulty rooms e. Putting on your No difficulty shoes or socks f. Squatting A little bit of difficulty g. Lifting an object No difficulty , like a bag of groceries from the floor h. Performing light No difficulty activities around your home i. Performing heavy A little bit of difficulty activities around your home j. Getting into or A little bit of difficulty out of a car k. Walking 2 blocks No difficulty l. Walking a mile No difficulty m. Going up or down A little bit of difficulty 10 stairs (about 1 flight of stairs) n. Standing for 1 A little bit of difficulty hour o. Sitting for 1 A little bit of difficulty hour p. Running on even A little bit of difficulty ground q. Running on uneven A little bit of difficulty ground r. Making sharp A little bit of difficulty turns while running fast s. Hopping A little bit of difficulty t. Rolling over in No difficulty bed LEFI Score Lower Extremity 68 Functional Index Score Miscellaneous Dx PT Eval Objective Objective + Trendelenburg Stance on R LE Outpatient Therapy Assessment Impairments Problems/ Palpation Tenderness,Impaired Range of Motion,Impaired Impairmments Strength,Impaired Gait Pattern,Impaired Walking, Impaired Standing,Impaired Lifting,Impaired Household Care,Impaired Stair Climbing,Impaired Squatting, Impaired Balance,Subjective C/O Pain,Impaired Self Care /Self Management Prognosis Rehab Potential Good Comment w HEP compliance Clinical Impression Consistent with Yes Diagnosis Consistent with Trochanteric Bursitis M70.61 PT Patient Goals PT Patient Goals PT Short Term In 4 weeks: Patient Goals 1. Patient will improve strength of R hip complex to 3+ /5 globally to improve gait mechanics, improve static/ dynamic balance and to decrease fall risk. 2. Patient will demonstrate a reduction in trigger point sensitivity to Grade 2 with manual palpation to improve comfort during activity and soft tissue mobility. 3. Patient will improve LEFS score to 73/80 to demonstrate improved functional mobility and increased independence with ADLs. 4. Patient will demonstrate the ability to perform 10 squats to 90 degrees of knee flexion with proper squatting mechanics and no increase in symptoms in order to demonstrate improved LE strength and improved functional movement patterns. 5. Patient will report a 48 hour average pain of 3/10 on the numeric pain rating scale to demonstrate improvement in quality of life and increased functional capacity. 6. Pt will demonstrate HEP compliance by completing prescribed HEP 4-5x/week. 7. Pt will improve active hip flexion with knee flexed by 5 degrees without pain, in order to demonstrate improved ability to don/doff clothing and for improved functional mobility. 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 Patient will improve strength of R hip complex to 5/ 5 globally to improve gait mechanics, improve static/ dynamic balance and to decrease fall risk. . 2. Patient will report a 48 hour average pain of 1/10 on the numeric pain rating scale to demonstrate improvement in quality of life and increased functional capacity. 4. Pt will be able to ascend/descend a flight of stairs with reciprocal stepping pattern and no hand rail to demonstrate improvements in home and community mobility . 5. Patient will be able to stand/walk for 1 hour without increasing symptoms to demonstrate improved community ambulation for activities, such as grocery shopping and improved work activities. Outpatient Therapy Plan of Care Treatment Plan May Include Therapeutic Exercise Yes Including Home Exercise Program Manual Therapy Yes Techniques Neuromuscular Re- Yes education Therapeutic Yes Activities to Return to Previous Functional/Work Level Gait Training Yes ADL/Self Care Yes Education Dry Needling Yes Thermal Modalities Yes Electrical Yes Stimulation Ultrasound/ Yes Phonophoresis Iontophoresis Yes Massage Yes Manual Lymphatic Yes Drainage Eval/Re-Eval Yes Frequency Times per week 2 Duration Number of Weeks 8 Addendums This patient is a No candidate for social or vocational rehab ? Patient/Guardian Yes verbally acknowledges understanding of treatment program and consents to further treatment? Patient/Guardian Yes verbally acknowledges understanding of diagnosis, prognosis and goals for treatment? Eval Complexity PT Charges 49449 - Low Complexity Shoulder/Elbow Eval Shoulder Objective Measurements Elbow Objective Measurements PHYSICIAN CERTIFICATION: I certify the specified therapy services for Felicia Juanis Marimar are required, authorized, and reviewed every 30 days.
== END 2025-07-28 23:59 | disposition home or self-care (01) ==
LOC: PT 08:00
PROVIDERS: Visit Provider Family Medicine
DX: M25.551 Pain in right hip (principal)
CPT/HCPCS: 97110; 97161; 97530